=== PATIENT | female | born 1960 | race Caucasian/White ===

== ENCOUNTER 2018-09-02 16:00 | Emergency (ER) | payer SELFPAY ==
[2018-09-02 16:21] VITALS: RESP 16; TEMP 97.3
[2018-09-02] MEDS ORDERED: APAP/HYDROCODONE 1 EACH TABLET PO ONE ×2 (16:49→18:03)
[2018-09-02] MEDS ORDERED: APAP/HYDROCODONE 1 EACH TABLET ONE ×2 (17:02→18:19)
[2018-09-02 19:21] VITALS: BP 105/53; PULSE 60; O2SAT 97
== END 2018-09-02 18:31 | disposition home or self-care (01) | DRG 563 ==
LOC: ED 16:00
DX: S93.602A Unspecified sprain of left foot, initial encounter (principal); E11.9 Type 2 diabetes mellitus without complications; W19.XXXA Unspecified fall, initial encounter
CPT/HCPCS: 73630; 99282; 99283; A9270-GY